=== PATIENT | male | born 1955 | race Hispanic/Latino ===

== ENCOUNTER 2020-11-04 15:50 | Outpatient (CLI) | payer MEDICARE, MEDICAID ==
[2020-11-05 02:31] LABS: SARS-CoV-2 PCR by NAA Not Detected (NotDetected)
== END 2020-11-04 15:51 | disposition home or self-care (01) ==
LOC: LABBT 15:50
PROVIDERS: ATTEND Internal Medicine Gastroenterology
DX: Z01.812 Encounter for preprocedural laboratory examination (principal); I85.00 Esophageal varices without bleeding; Z20.822 Contact with and (suspected) exposure to COVID-19
CPT/HCPCS: U0003; U0005; 87635

== ENCOUNTER 2020-11-09 06:06 | Day surgery (SDC) | payer MEDICARE, MEDICAID ==
[2020-11-06 13:36] VITALS: BMI 31.1
[2020-11-09] MEDS ORDERED: PROPOFOL 200 MG/20 ML VIAL ONE (08:16)
[2020-11-09] MEDS ORDERED: EPINEPHrine 1 MG/10 ML Abboject SYRINGE ONE (08:16)
[2020-11-09] MEDS ORDERED: Lidocaine 1% PF 5 ML VIAL ONE (08:16)
== END 2020-11-09 09:50 | disposition home or self-care (01) ==
LOC: SDC 06:06
PROVIDERS: ATTEND Internal Medicine Gastroenterology
PROC: 0DB78ZX Excision of Stomach, Pylorus, Via Natural or Artificial Opening Endoscopic, Diagnostic (ICD-10-PCS; principal; 2020-11-09)
DX: K31.7 Polyp of stomach and duodenum (principal); K74.60 Unspecified cirrhosis of liver; I85.10 Secondary esophageal varices without bleeding; K76.0 Fatty (change of) liver, not elsewhere classified; K76.6 Portal hypertension; K31.89 Other diseases of stomach and duodenum; D64.9 Anemia, unspecified; M19.90 Unspecified osteoarthritis, unspecified site; Z79.899 Other long term (current) drug therapy; Z87.891 Personal history of nicotine dependence
CPT/HCPCS: 88305; J0171; J2704